=== PATIENT | male | born 1980 | race Two or more races ===

== ENCOUNTER 2021-10-29 16:30 | Emergency (ER) | payer OTHER ==
--- NOTE | 2021-10-29 16:47 | ED Physician Documentation ---
PD HPI DYSPNEA - Stated complaint Stated Complaint: TROUBLE BREATHING - Chief complaint Chief Complaint: Resp - History obtained from History obtained from: Patient - Additional information Additional information: 41-year-old gentleman with history of GERD, otherwise healthy. Recent travel by flight to [place] for a political rally, guarding back 5 days ago. 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 He has a minimal nonproductive cough. No fevers or chills. No runny nose or sore throat. No pedal edema or calf pain. No history of heart or lung problems or asthma or anything of that ilk. He did develop some stabbing chest pains which are gone now. They were brief and fleeting, nonexertional. Review of Systems Ten Systems: 10 systems reviewed and negative Constitutional: denies: Fever, Chills, Fatigue Cardiac: denies: Palpitations, Pedal edema, Calf pain Respiratory: reports: Dyspnea, Cough. denies: Hemoptysis, Wheezing PD PAST MEDICAL HISTORY - Present Medications Home Medications: Ambulatory Orders Medication Instructions Recorded Confirmed Albuterol Sulf [Ventolin Hfa 1 - 2 puffs INH Q4HR PRN #1 inhaler 10/29/21 Inhaler] - Allergies Allergies/Adverse Reactions: Allergies Allergy/AdvReac Type Severity Reaction Status Date / Time No Known Drug Allergies Allergy Verified 10/29/21 16:40 PD ED PE NORMAL - Vitals Vital signs reviewed: Yes - General General: Alert and oriented X 3, No acute distress - HEENT HEENT: PERRL, EOMI - Neck Neck: Supple, no meningeal sign, No bony TTP - Cardiac Cardiac: RRR, No murmur - Respiratory Respiratory: No respiratory distress, Clear bilaterally - Abdomen Abdomen: Non tender - Extremities Extremities: No edema, No calf tenderness / cord - Neuro Neuro: Alert and oriented X 3, Normal speech Results - Vitals Vitals: Vital Signs - 24 hr 10/29/21 10/29/21 10/29/21 16:40 16:56 18:11 Temperature 36.5 C 37 C Heart Rate 90 87 70 Respiratory 17 17 14 Rate Blood Pressure 127/80 127/80 142/90 H O2 Saturation 100 97 99 10/29/21 18:41 Temperature 37 C Heart Rate 74 Respiratory 14 Rate Blood Pressure O2 Saturation 97 Oxygen O2 Source Room air - Labs Labs: Laboratory Tests 10/29/21 10/29/21 10/29/21 17:01 17:01 17:01 WBC 12.1 H RBC 4.70 Hgb 14.5 Hct 41.4 L MCV 88.1 MCH 30.9 MCHC 35.0 RDW 12.2 Plt Count 379 MPV 9.3 Neut # (Auto) 7.7 H Lymph # (Auto) 3.1 [place] # (Auto) 1.0 Eos # (Auto) 0.2 Baso # (Auto) 0.1 Absolute Nucleated RBC 0.00 Nucleated RBC % 0.0 D-Dimer Sodium 135 Potassium 3.8 Chloride 102 Carbon Dioxide 24 Anion Gap 9.0 BUN 22 H Creatinine 1.0 Estimated GFR (MDRD) 83 L Glucose 91 Calcium 9.0 Total Bilirubin 0.6 AST 20 ALT 25 Alkaline Phosphatase 57 Troponin I High Sens 2.6 Total Protein 7.3 Albumin 3.9 Globulin 3.4 Albumin/Globulin Ratio 1.1 Lipase 51 10/29/21 17:26 WBC RBC Hgb Hct MCV MCH MCHC RDW Plt Count MPV Neut # (Auto) Lymph # (Auto) [place] # (Auto) Eos # (Auto) Baso # (Auto) Absolute Nucleated RBC Nucleated RBC % D-Dimer 207.2 Sodium Potassium Chloride Carbon Dioxide Anion Gap BUN Creatinine Estimated GFR (MDRD) Glucose Calcium Total Bilirubin AST ALT Alkaline Phosphatase Troponin I High Sens Total Protein Albumin Globulin Albumin/Globulin Ratio Lipase PD MEDICAL DECISION MAKING - ED course ED course: 41-year-old gentleman presents with asthma in the setting of a cough. Lungs are relatively clear though. Given the recent travel he was stratified for PE with D-dimer which was negative and his chest x-ray etc. were negative as well. Watchful waiting and a trial of albuterol was advised. Departure - Departure Disposition: Home, Self Care Clinical Impression: Dyspnea Condition: Good Record reviewed to determine appropriate education?: Yes Instructions: ED Dyspnea Shortness of Breath Prescriptions: Albuterol Sulf [Ventolin Hfa Inhaler] 1 - 2 puffs INH Q4HR PRN #1 inhaler PRN Reason: Shortness Of Air/Wheezing Comments: The cause of your shortness of breath is not known. Your chest x-ray, lab work and other diagnostics are unremarkable without evidence of heart disease or blood clots or anything serious like that. Return for new or worsening symptoms. I am prescribing an inhaler that may help in the meantime. Follow-up with your primary care physician, next available appointment. Discharge Date/Time: 10/29/21 18:41
[2021-10-29 17:26] LABS: BASOPHILS # (AUTO) 0.1 10^3/uL (0.0-0.1); BASOPHILS % (AUTO) 0.6 %; EOSINOPHILS # (AUTO) 0.2 10^3/uL (0.0-0.7); EOSINOPHILS % (AUTO) 1.2 %; HCT - HEMATOCRIT 41.4 % (42.0-52.0); HGB - HEMOGLOBIN 14.5 g/dL (14.0-18.0); LYMPHOCYTES # (AUTO) 3.1 10^3/uL (1.5-3.5); LYMPHOCYTES % (AUTO) 25.5 %; MEAN CORPUSCULAR HEMOGLOBIN 30.9 pg (27.0-31.0); MEAN CORPUSCULAR VOLUME 88.1 fL (80.0-94.0); MEAN PLATELET VOLUME 9.3 fL (7.4-11.4); NEUTROPHILS # (AUTO) 7.7 10^3/uL (1.5-6.6); NEUTROPHILS % (AUTO) 64.2 %; PLT - PLATELET COUNT 379 10^3/uL (130-450); RED CELL DISTRIBUTION WIDTH 12.2 % (12.0-15.0); WHITE BLOOD COUNT 12.1 x10^3/uL (4.8-10.8)
--- NOTE | 2021-10-29 17:36 | XRAY Report ---
PROCEDURE: Chest 1 View X-Ray INDICATIONS: dyspnea TECHNIQUE: One view of the chest was acquired. COMPARISON: None FINDINGS: Surgical changes and devices: None. Lungs and pleura: No pleural effusions or pneumothorax. Lungs are clear. Mediastinum: Mediastinal contours appear normal. Heart size is normal. Bones and chest wall: No suspicious bony lesions. Overlying soft tissues appear unremarkable. IMPRESSION: No acute cardiopulmonary disease process. Reviewed by: Honey Del Rio MD, PhD on 10/29/2021 5:35 PM PDT Approved by: Honey Del Rio MD, PhD on 10/29/2021 5:35 PM PDT Station ID: [id number]
[2021-10-29 17:37] LABS: ALBUMIN 3.9 g/dL (3.2-5.5); ALBUMIN/GLOBULIN RATIO 1.1 (1.0-2.2); BILIRUBIN,TOTAL 0.6 mg/dL (0.2-1.0); POTASSIUM 3.8 mmol/L (3.5-5.0); TOTAL PROTEIN 7.3 g/dL (6.7-8.2)
[2021-10-29 18:12] VITALS: BP 142/90
== END 2021-10-29 18:41 | disposition home or self-care (01) ==
LOC: ED 16:30
DX: R06.09 Other forms of dyspnea (principal)
CPT/HCPCS: 36415; 80053; 83690; 84484; 85025; 85379; 99282; 99284

== ENCOUNTER 2021-11-21 15:44 | Outpatient (CLI) | payer OTHER | END 2021-11-21 15:45 | disposition left against medical advice (07) | LOC: EMS 15:44 | DX: R07.9 Chest pain, unspecified (principal); R06.02 Shortness of breath; R42 Dizziness and giddiness ==

== ENCOUNTER 2021-11-21 17:24 | Emergency (ER) | payer OTHER ==
--- NOTE | 2021-11-21 17:45 | ED Physician Documentation ---
History of Present Illness - Stated complaint Stated Complaint: CHEST PX/SOA/LIGHT HEADED - Chief complaint Chief Complaint: Cardiac - Additonal information Additional information: 41-year-old male presents emergency department for evaluation of chest pain and pressure. Symptoms began about 3 hours ago [place] He reports 2 episodes of chest pain one that lasted just a few seconds but the other that lasted for nearly 30 Minutes. He describes a crushing chest pressure without radiation. No nausea or vomiting. He did feel somewhat lightheaded. He denies any acid chest pain now though sometimes he can reproduce it if he turns his chin towards his sternum. He has no cough or fevers. No unilateral leg swelling. Was seen in this ER in the beginning of October for shortness of air after travel. D-dimer was ultimately negative. Patient denies any pertinent past medical history. Takes no prescribed medications. He is scheduled to see [facility] and follow-up on the 24 November. Non-smoker no history of asthma. Vaccinated for COVID-19. Review of Systems Constitutional: reports: Reviewed and negative Throat: reports: Reviewed and negative Cardiac: reports: Chest pain / pressure. denies: Palpitations, Pedal edema, Calf pain Respiratory: reports: Reviewed and negative GI: reports: Reviewed and negative : reports: Reviewed and negative Skin: reports: Reviewed and negative Musculoskeletal: reports: Reviewed and negative Neurologic: reports: Reviewed and negative PD PAST MEDICAL HISTORY - Present Medications Home Medications: Ambulatory Orders Medication Instructions Recorded Confirmed Albuterol Sulf [Ventolin Hfa 1 - 2 puffs INH Q4HR PRN #1 inhaler 10/29/21 Inhaler] - Allergies Allergies/Adverse Reactions: Allergies Allergy/AdvReac Type Severity Reaction Status Date / Time No Known Drug Allergies Allergy Verified 11/21/21 17:28 PD ED PE NORMAL - General General: Alert and oriented X 3, No acute distress, Well developed/nourished - HEENT HEENT: Atraumatic, Moist mucous membranes - Neck Neck: Supple, no meningeal sign, Thyroid normal - Cardiac Cardiac: RRR, No murmur, No gallop - Respiratory Respiratory: No respiratory distress, Clear bilaterally - Abdomen Abdomen: Normal bowel sounds, Soft - Back Back: No CVA TTP - Derm Derm: Normal color, Warm and dry, No rash - Extremities Extremities: No deformity, No tenderness to palpate, Normal ROM s pain - Neuro Neuro: Alert and oriented X 3, ab initio etl developer 2-12 intact Eye Opening: Spontaneous Motor: Obeys Commands Verbal: Oriented GCS Score: 15 Results - Vitals Vitals: Vital Signs - 24 hr 11/21/21 11/21/21 17:28 17:56 Temperature 36.5 C 36.7 C Heart Rate 100 98 Respiratory 16 19 Rate Blood Pressure 128/85 H 130/84 H O2 Saturation 96 98 Oxygen O2 Source Room air - EKG (time done) 1731 Rate: Rate (enter#) (99) Rhythm: NSR [place]: Normal Intervals: Normal MS QRS: Poor R wave progression Compare to prior EKG: Old EKG unavailable Computer interpretation: Agree with computer - Labs Labs: Laboratory Tests 11/21/21 11/21/21 11/21/21 17:41 17:41 17:41 WBC 12.1 H RBC 4.72 Hgb 14.4 Hct 42.2 MCV 89.4 MCH 30.5 MCHC 34.1 RDW 12.3 Plt Count 365 MPV 9.0 Neut # (Auto) 8.6 H Lymph # (Auto) 2.6 [place] # (Auto) 0.8 Eos # (Auto) 0.1 Baso # (Auto) 0.1 Absolute Nucleated RBC 0.00 Nucleated RBC % 0.0 Sodium 136 Potassium 3.7 Chloride 102 Carbon Dioxide 22 Anion Gap 12.0 BUN 16 Creatinine 1.1 Estimated GFR (MDRD) 74 L Glucose 98 Calcium 9.4 Total Bilirubin 0.7 AST 20 ALT 26 Alkaline Phosphatase 63 Troponin I High Sens 3.1 Total Protein 7.6 Albumin 4.2 Globulin 3.4 Albumin/Globulin Ratio 1.2 Lipase 46 - Rads (name of study) cxr Radiology: Final report received (No acute cardiopulmonary process) PD MEDICAL DECISION MAKING - ED course Complexity details: reviewed results, re-evaluated patient, considered differential, d/w patient ED course: 41-year-old male presents emergency department for evaluation of substernal chest pressure. Symptoms [place] Initially symptoms lasted for just a few seconds but then he had a sustained episode lasting approximately 30 minutes. At this time he reports that he can reproduce the chest pain and pressure when he tilts his chin towards his sternum. No recent falls or trauma. He is PERC negative. 9 screening EKG is nonischemic. X-ray is without acute focal findings. Screening labs including a troponin are unremarkable. Patient was seen in this ER just a few weeks ago for shortness of air after travel with a negative D-dimer. He is scheduled to see [facility] in 72 hours. At that time he may benefit from referral for stress test or echocardiogram. At the time of my final evaluation patient is free of chest pain and shortness of air. Departure - Departure Disposition: 01 Home, Self Care Clinical Impression: Chest pain Qualifiers: Chest pain type: unspecified Qualified Code(s): R07.9 - Chest pain, unspecified Condition: Stable Record reviewed to determine appropriate education?: Yes Instructions: ED Chest Pain O Comments: Froy you were seen today in the emergency department for chest pain. Your screening chest x-ray, EKG and labs are all essentially normal. However this is her second ED visit in the last month for shortness of air and/or chest pain. When you follow-up with your primary doctor on Monday please discuss if it would be appropriate for you to be referred for outpatient echocardiogram and/or stress testing. If at any point you develop worsening symptoms, have any fainting episodes, se kellen shortness of air or develop fevers then please return immediately to the ER for second evaluation
[2021-11-21 17:47] LABS: BASOPHILS # (AUTO) 0.1 10^3/uL (0.0-0.1); BASOPHILS % (AUTO) 0.6 %; EOSINOPHILS # (AUTO) 0.1 10^3/uL (0.0-0.7); EOSINOPHILS % (AUTO) 0.5 %; HCT - HEMATOCRIT 42.2 % (42.0-52.0); HGB - HEMOGLOBIN 14.4 g/dL (14.0-18.0); LYMPHOCYTES # (AUTO) 2.6 10^3/uL (1.5-3.5); LYMPHOCYTES % (AUTO) 21.7 %; MEAN CORPUSCULAR HEMOGLOBIN 30.5 pg (27.0-31.0); MEAN CORPUSCULAR HGB CONC 34.1 g/dL (32.0-36.0); MEAN CORPUSCULAR VOLUME 89.4 fL (80.0-94.0); MONOCYTES # (AUTO) 0.8 10^3/uL (0.0-1.0); MONOCYTES % (AUTO) 6.3 %; NEUTROPHILS # (AUTO) 8.6 10^3/uL (1.5-6.6); NEUTROPHILS % (AUTO) 70.7 %; PLT - PLATELET COUNT 365 10^3/uL (130-450); RED BLOOD COUNT 4.72 10^6/uL (4.70-6.10); RED CELL DISTRIBUTION WIDTH 12.3 % (12.0-15.0); WHITE BLOOD COUNT 12.1 x10^3/uL (4.8-10.8)
--- NOTE | 2021-11-21 17:58 | XRAY Report ---
PROCEDURE: Chest 1 View X-Ray INDICATIONS: Chest pain TECHNIQUE: One view of the chest was acquired. COMPARISON: 10/29/2021 FINDINGS: Surgical changes and devices: None. Lungs and pleura: An incomplete inspiratory result is noted, with low lung volumes and crowding of t he vascular markings. No focal infiltrates are seen. No large pneumothorax or large pleural effusion can be seen. Mediastinum: Mediastinal contours appear normal. Heart size is normal. Bones and chest wall: No suspicious bony lesions. Overlying soft tissues appear unremarkable. IMPRESSION: Portable chest within normal limits for age. Reviewed by: Juan Antonio Faith MD on 11/21/2021 4:56 PM DANDY Approved by: Juan Antonio Faith MD on 11/21/2021 4:56 PM DANDY Station ID: [id number]
[2021-11-21 18:03] LABS: ALBUMIN 4.2 g/dL (3.2-5.5); ALBUMIN/GLOBULIN RATIO 1.2 (1.0-2.2); BILIRUBIN,TOTAL 0.7 mg/dL (0.2-1.0); CALCIUM 9.4 mg/dL (8.5-10.3); CREATININE 1.1 mg/dL (0.6-1.2); POTASSIUM 3.7 mmol/L (3.5-5.0); TOTAL PROTEIN 7.6 g/dL (6.7-8.2)
[2021-11-21 18:54] VITALS: BP 132/78
== END 2021-11-21 18:53 | disposition home or self-care (01) ==
LOC: ED 17:24
DX: R07.9 Chest pain, unspecified (principal)
CPT/HCPCS: 36415; 80053; 83690; 84484; 85025; 93005; 99284

== ENCOUNTER 2021-12-24 15:34 | Outpatient (CLI) | payer OTHER ==
[2021-12-24 16:27] VITALS: BP 132/97
--- NOTE | 2021-12-24 16:27 | SLEEP CARE CONSULTATION ---
Information from patient questionnaire entered by Emiliano Garcia MA. I have reviewed and concur with the information entered by Emiliano Garcia MA. This document represents the service I personally performed and the decisions made by me, Reshma Ayoub ARNP. History of Present Illness Service Date and Time: 12/24/2021 1534 Reason for Visit: New patient (ONSET 10/24/2016, ) Chief Complaint: reports: Unrefreshed sleep, Snoring, Excessive daytime sleepiness, Observed pauses in breathing Date of Onset: 2-3 years Usual bedtime: 8-9 pm Time it takes to fall asleep: 45-60 minutes Snores at night: Yes Observed to quit breathing while asleep: Yes Sleeps alone due to snoring: Yes Number of times waking at night: 2 Reasons for waking at night: reports: Choking, Snoring, Gasping for air, Other (unknown reasons; will nudge him for snoring and dog) Toss, Turn, or Twitch while sleeping: Yes Recalls having dreams: Yes Usually gets out of bed at: 0500 Feels refreshed in the morning: No Morning headache: Yes (2-3 times a week; takes tylenol when he get up, gone 30 mins) Sleepy or fatigued during the day: Yes Ever fallen asleep while driving: No Takes day naps: No Dreams during day naps: Yes Prior sleep studies: No Additional HPI information: I had the pleasure of seeing JASSON MERRILL today regarding the possibility of him having a sleep disorder. His current complaints are unrefreshed sleep, snoring, excessive daytime sleepiness and observed pauses in breathing. He states he has difficulty falling asleep, but once he falls asleep he can stay asleep. He does not ever wake up feeling rested. His tells him that he snores loudly and she has seen him stop breathing with sleeping. - Parasomnia Symptoms Ever been unable to move upon waking from sleep: Yes (random, 3-4 times in 6 months) Walks in sleep: No Talks in sleep: Yes Ever acted out dreams in sleep: Yes (has hit out and hit headboard and bed partner but this is rare) Ever felt weak in the knees when startled or emotional: Yes (has never fallen to ground) Bothered by creepy, crawly, restless sensations in legs: No Problems with memory or concentration: Yes (concentration) Subjective Initial [place] Sleepiness Scale score: 12 (12/23/2021) Past Medical History Past Medical History: reports: Other (bruxism, uses mouthguard) Social History The patient's occupation is a [employer]. Patient is Legally and lives in . Have you smoked in the past 12 months: No Alcohol use: Yes Alcohol amount and frequency: 4 X MONTHLY Caffeine use: No Family History Family history of sleep disordered breathing: No Family Hx Sleep Apnea: Mother: Snoring, Father: Snoring Allergies and Home Medications Known drug allergies: No Drug allergies reviewed: Yes (NKDA) Home medication list reviewed: Yes (apple cider vinegar gummies) Allergy and home medication list: Allergies No Known Drug Allergies Allergy (Verified 11/21/21 17:28) Review of Systems Cardiovascular: reports: other (heart racing with anxiety about 1 time a month) Respiratory: reports: shortness of breath (with anxiety) Gastrointestinal: reports: heartburn (often, was on prilosec but trying diet control) Neurological: reports: headaches, head trauma (as infant was dropped and had laceration stitched), gait or balance problems (felt like knees buckled once) Psychiatric: reports: anxiety Ear/Nose/Throat: reports: wisdom teeth removed. denies: injury to nose, tonsillectomy Endocrine: reports: sluggishness. denies: thyroid disease Musculoskeletal: reports: back pain Immunologic: reports: allergies to food or environment (pollen) Physical Exam Vital signs obtained and entered by: Mable Garcia CMA [facility] Blood Pressure: 132/97 (resp 18, pulse 82, right,) Heart Rate: 81 O2 Saturation: 97 (paper mask) Height: 5 ft 4 in Weight: 180 lb Body Mass Index: 30.9 BMI Classification: Obese Neck circumference: 14.5 (inches) Mouth and throat: narrow oropharynx Soft palate: long Hard palate: normal Uvula: normal Uvula visualization: 25% Mallampati Class III Tongue: enlarged in size with teeth cross on lateral edges Tonsils: 2+ Neck: normal w/o lymphadenopathy or thyromegaly Heart: regular rate and rhythm Lungs: clear bilaterally Impression and Plan 1. Suspected Obstructive Sleep Apnea-Hypopnea Syndrome, as suggested by a history of loud and irregular snoring, observed cessation of breath while asleep, gasping or choking in sleep, morning headache, unrefreshed sleep, cognitive impairment, and excessive daytime sleepiness. Narrow oropharynx and obesity are common predisposing factors for obstructive sleep apnea-hypopnea syndrome. I recommend proceeding to polysomnography to confirm the diagnosis and to assess severity. If the patient has significant sleep disordered breathing, a manual CPAP titration study will also be performed to find the optimal treatment pressure. I informed the patient of what the sleep studies involve and after some discussion, obtained agreement to proceed. The pathophysiology of obstructive sleep apnea-hypopnea syndrome was discussed with the patient and health risks of cardiovascular and cerebrovascular disease if not treated. Risks of drowsy driving discussed in detail and patient advised to avoid long distance driving and to ladle puller at the first sign of drowsiness. Patient agreed to plan. * Schedule polysomnography * Avoid long distance driving or driving when feeling sleepy. * Avoid alcohol, sedative and muscle relaxant around bedtime. * Attempt to lose weight. * Review instructions provided by trained office staff on how to prepare for the sleep study. * Return for follow-up after sleep study completed. Counseling Topics: Weight loss health impact Visit Type: In Office Time Spent with Patient (minutes): 30 Provider Statement: I spent 100% of the Face to Face Visit with the patient with greater than 50% spent counseling the patient and coordination of care.
== END 2021-12-24 15:35 | disposition home or self-care (01) ==
LOC: SC 15:34
PROVIDERS: ATTEND Nurse Practitioner Family
DX: R06.83 Snoring (principal); G47.8 Other sleep disorders; R06.81 Apnea, not elsewhere classified; R51.9 Headache, unspecified; G47.10 Hypersomnia, unspecified; E66.9 Obesity, unspecified; Z68.30 Body mass index [BMI] 30.0-30.9, adult
CPT/HCPCS: 99203; 99212

== ENCOUNTER 2022-01-19 13:57 | Outpatient (CLI) | payer OTHER ==
[2022-01-19 14:38] VITALS: BP 131/83
--- NOTE | 2022-01-19 14:39 | SLEEP CARE CONSULTATION ---
Information from patient questionnaire entered by Emiliano Garcia MA. I have reviewed and concur with the information entered by Emiliano Garcia MA. This document represents the service I personally performed and the decisions made by , Reshma Ayoub ARNP. History of Present Illness Service Date and Time: 01/19/2022 1346 Initial [place] Sleepiness Scale score: 12 (12/23/2021) Current [place] Sleepiness Scale score: 15 (01/19/2022) Additional HPI information: JASSON MERRILL returns for follow up and results of the recently performed home sleep study. I explained the pathophysiology behind obstructive sleep apnea. We then spent q uite a bit of time discussing different treatment options. For mild obstructive sleep apnea, surgery and oral appliance are alternatives to nasal CPAP therapy but in moderate or severe cases, nasal CPAP is the most effective and reliable treatment. Because apnea is primarily in supine position, then positional management therapy could be effective. Methods discussed such as positioning with pillows to prevent supine sleep. I reviewed the impact of weight changes on sleep apnea and strongly recommended losing weight. After some discussion, the patient opted to go with the nasal CPAP therapy. Nasal autoCPAP set at 4-15 cmH20 will be ordered with rationale explained. A manual titration study will be ordered if unable to find optimal pressure with office adjustments. I explained how CPAP machine works and what to expect when using the machine. Using CPAP every night in order to get used to it was emphasized. Patient advised to put CPAP mask on before getting into bed so as not to fall asleep without CPAP. To assist acclimation to CPAP use, it could also be used for a short time during day while reading or watching TV. The patient was instructed to call the CPAP supplier to discuss any mechanical problem that may occur. If the mask given is uncomfortable or is difficult to keep on through the night even with adjustment, contact the CPAP supplier as many will replace with another mask style if notified before 30 days. If snoring or perceives is not getting enough air or too much air from the machine, notify this office. Patient does not drink alcohol. Patient was cautioned about risks of drowsy driving until sleepiness symptoms resolve. Sleep Study - Results Type of Sleep Study: Home sleep study (F/U HST, 12/29/2021 [facility], POS,) Prior sleep studies: No Polysomnography/Home Sleep Study results: Physician Impression: The quality of the study is good. The length of the study is adequate (> 240 minutes). Please also see the tabulated and graphic data. 1. Obstructive Sleep Apnea-Hypopnea (ICD-10 G47.33), mild, with an AHI of 10.8/hr and antione SaO2 of 68%. During the study, the patient had 25 apneas (25 obstructive, 0 central, 0 mixed) and 25 hypopneas. The longest episode lasted 70.5 seconds. The respiratory events occurred almost exclusively during supine sleep (supine AHI was 16.3 and non-supine, 1.19). 2. Hypoxemia (ICD-10 R09.02), moderate, with the lowest oxygen saturation of 68 % and 7.3 minutes with SaO2 under 90%. Baseline oxygen saturation was normal (Average oxygen saturation was 94%). Allergies and Home Medications Home medication list reviewed: Yes (no changes) Allergy and home medication list: Allergies No Known Drug Allergies Allergy (Verified 11/21/21 17:28) Review of Systems Review of systems same as previous: Yes (no changes) Physical Exam Vital signs obtained and entered by: ADELA GORDON Blood Pressure: 131/83 (RESP 20, PULSE 100, RIGHT) Heart Rate: 96 O2 Saturation: 98 Height: 5 ft 4 in Weight: 180 lb (UNIFORM AND BOOTS) Body Mass Index: 30.9 BMI Classification: Obese Impression and Plan 1. Obstructive Sleep Apnea-Hypopnea Syndrome, mild, with lowest oxygen saturation of 68%. Obviously this is the cause of the patients symptoms of unrefreshed sleep, and excessive daytime sleepiness. As mentioned above, the patient will be started on nasal autoCPAP therapy with pressure set at 4-15 cmH2 O. Compliance guidelines also reviewed. A copy of compliance guidelines will be given for reference at check out. Because the apnea is more severe supine, I instructed to avoid sleeping supine using pillow positioning until able to start CPAP use. 2. Hypoxemia, moderate, with the lowest oxygen saturation of 68 % and 7.3 minutes with SaO2 under 90%. His baseline oxygen saturation was normal with an average oxygen saturation of 94%. * Nasal auto CPAP therapy, pressure at _4-15_ cm H2O. * Attempt to lose weight. * Avoid supine sleep until using CPAP. * The patient is again cautioned about driving until sleepiness completely resolves. * Return one month after CPAP obtained. I will assess response to therapy and compliance at that time. Counseling Topics: Sleeping position, Weight loss health impact Visit Type: In Office Time Spent with Patient (minutes): 20 Provider Statement: I spent 100% of the Face to Face Visit with the patient with greater than 50% spent counseling the patient and coordination of care.
== END 2022-01-19 13:58 | disposition home or self-care (01) ==
LOC: SC 13:57
PROVIDERS: ATTEND Nurse Practitioner Family
DX: G47.33 Obstructive sleep apnea (adult) (pediatric) (principal); R09.02 Hypoxemia; E66.9 Obesity, unspecified; Z68.30 Body mass index [BMI] 30.0-30.9, adult
CPT/HCPCS: 99212; 99213

== ENCOUNTER 2022-03-03 07:27 | Outpatient (CLI) | payer OTHER ==
[2022-03-03 12:49] LABS: BASOPHILS # (AUTO) 0.1 10^3/uL (0.0-0.1); BASOPHILS % (AUTO) 0.6 %; EOSINOPHILS # (AUTO) 0.1 10^3/uL (0.0-0.7); EOSINOPHILS % (AUTO) 1.5 %; HCT - HEMATOCRIT 44.3 % (42.0-52.0); LYMPHOCYTES # (AUTO) 2.6 10^3/uL (1.5-3.5); MEAN CORPUSCULAR HEMOGLOBIN 30.5 pg (27.0-31.0); MEAN CORPUSCULAR HGB CONC 33.9 g/dL (32.0-36.0); MEAN CORPUSCULAR VOLUME 90.2 fL (80.0-94.0); MEAN PLATELET VOLUME 9.4 fL (7.4-11.4); MONOCYTES # (AUTO) 0.6 10^3/uL (0.0-1.0); MONOCYTES % (AUTO) 7.3 %; NEUTROPHILS # (AUTO) 5.1 10^3/uL (1.5-6.6); NEUTROPHILS % (AUTO) 60.2 %; PLT - PLATELET COUNT 357 10^3/uL (130-450); RED BLOOD COUNT 4.91 10^6/uL (4.70-6.10); RED CELL DISTRIBUTION WIDTH 12.2 % (12.0-15.0); WHITE BLOOD COUNT 8.5 x10^3/uL (4.8-10.8)
[2022-03-03 13:57] LABS: THYROID STIMULATING HORMONE 1.54 uIU/mL (0.34-5.60)
[2022-03-03 15:08] LABS: ALBUMIN 4.2 g/dL (3.2-5.5); ALBUMIN/GLOBULIN RATIO 1.3 (1.0-2.2); BILIRUBIN,TOTAL 1.4 mg/dL (0.2-1.0); CALCIUM 9.5 mg/dL (8.5-10.3); CREATININE 1.1 mg/dL (0.6-1.2); POTASSIUM 4.2 mmol/L (3.5-5.0); TOTAL PROTEIN 7.5 g/dL (6.7-8.2)
== END 2022-03-03 07:28 | disposition home or self-care (01) ==
LOC: LAB.N 07:27
PROVIDERS: ATTEND Registered Nurse
DX: R20.2 Paresthesia of skin (principal)
CPT/HCPCS: 36415; 80053; 84443; 85025

== ENCOUNTER 2022-03-24 00:55 | Emergency (ER) | payer OTHER ==
[2022-03-24] MEDS ORDERED: FAMOTIDINE 20 MG TABLET PO STA (01:18)
--- NOTE | 2022-03-24 01:53 | ED Physician Documentation ---
History of Present Illness - Stated complaint Stated Complaint: difficulty breathing - Chief complaint Chief Complaint: Resp - History obtained from History obtained from: Patient - Additonal information Additional information: 41-year-old male with past medical history of GERD presents with intermittent tightness in the epigastrium a/w difficulty catching breath starting around 10 PM. Pain is mild, radiating upward from epigastrium, burning, constant. denies history of asthma, denies allergies or allergen exposure. denies fever, cough, nausea/vomiting. He recently started a prebiotic and apple cider vinegar regimen. Review of Systems Ten Systems: 10 systems reviewed and negative Constitutional: denies: Fever Cardiac: denies: Chest pain / pressure Respiratory: reports: Dyspnea. denies: Cough PD PAST MEDICAL HISTORY - Present Medications Home Medications: Ambulatory Orders Medication Instructions Recorded Confirmed Albuterol Sulf [Ventolin Hfa 1 - 2 puffs INH Q4HR PRN #1 inhaler 10/29/21 Inhaler] - Allergies Allergies/Adverse Reactions: Allergies Allergy/AdvReac Type Severity Reaction Status Date / Time No Known Drug Allergies Allergy Verified 03/24/22 01:01 PD ED PE NORMAL - Vitals Vital signs reviewed: Yes - General General: Alert and oriented X 3, No acute distress, Well developed/nourished - HEENT HEENT: Atraumatic, PERRL, EOMI - Neck Neck: Supple, no meningeal sign - Cardiac Cardiac: RRR - Respiratory Respiratory: No respiratory distress, Clear bilaterally - Abdomen Abdomen: Non tender, Non distended, Other (discomfort in epigastrium) - Derm Derm: Normal color, Warm and dry - Extremities Extremities: No deformity - Neuro Neuro: Alert and oriented X 3, No motor deficit, No sensory deficit - Psych Psych: Normal mood, Normal affect Results - Vitals Vitals: Vital Signs - 24 hr 03/24/22 00:58 Temperature 36 C L Heart Rate 76 Respiratory 18 Rate Blood Pressure 126/84 H O2 Saturation 100 Oxygen O2 Source Room air PD MEDICAL DECISION MAKING - ED course ED course: 41yM presents for evaluation of epigastric tightness, improving with symptomatic management in the ED. likely sequela of GERD. advised to hold apple cider vinegar which can be irritating to stomach lining. return precautions given. [place]ure - Departure Disposition: 01 Home, Self Care Clinical Impression: GERD (gastroesophageal reflux disease) Condition: Good Instructions: GERD Dc Comments: You are seen in the emergency department for medical evaluation. Your vital signs and physical exam uncovered no emergent conditions. [place] Return to the emergency department if you have any new or worsening symptoms or other concerns.
[2022-03-24 02:05] VITALS: BP 117/71
== END 2022-03-24 02:05 | disposition home or self-care (01) ==
LOC: ED 00:55
DX: K21.9 Gastro-esophageal reflux disease without esophagitis (principal)
CPT/HCPCS: 99282; A9270

== ENCOUNTER 2022-03-25 23:55 | Outpatient (CLI) | payer OTHER | END 2022-03-25 23:56 | disposition EMS.NT | LOC: EMS 23:55 | DX: R06.00 Dyspnea, unspecified (principal) ==

== ENCOUNTER 2022-03-27 03:52 | Outpatient (CLI) | payer OTHER | END 2022-03-27 03:53 | disposition EMS.NT | LOC: EMS 03:52 | DX: R06.02 Shortness of breath (principal) ==

== ENCOUNTER 2022-06-15 04:21 | Outpatient (CLI) | payer OTHER | END 2022-06-15 04:22 | disposition EMS.NT | LOC: EMS 04:21 | DX: R06.00 Dyspnea, unspecified (principal); R00.0 Tachycardia, unspecified; F41.9 Anxiety disorder, unspecified ==